=== PATIENT | male | born 1985 | race Caucasian/White ===

== ENCOUNTER 2018-01-13 17:55 | Observation (INO) | payer BC ==
[~2018-01-13] VITALS: Ht 170.2 cm; Wt 75.5 kg
[2018-01-13 19:51] VITALS: BP 144/89; PULSE 80; TEMP 98.2
[2018-01-13 20:58] VITALS: BP 144/89; PULSE 80; TEMP 98.2
[2018-01-13 23:36] VITALS: BP 145/75; PULSE 86; TEMP 98.2
[2018-01-13 23:51] VITALS: BP 124/76; PULSE 76; TEMP 98.4
[2018-01-14 00:05] VITALS: BP 124/75; PULSE 75; TEMP 98.4
[2018-01-14 00:21] VITALS: BP 115/76; PULSE 68; TEMP 98.4
[2018-01-14 00:51] VITALS: BP 110/65; PULSE 65; TEMP 98.1
[2018-01-14 01:21] VITALS: BP 109/76; PULSE 18; TEMP 98.2
[2018-01-14 04:00] VITALS: BP 123/61; PULSE 68; TEMP 98
[2018-01-14 08:12] VITALS: BP 116/66; PULSE 68; TEMP 98.8
== END 2018-01-14 11:27 | disposition home or self-care (01) ==
LOC: SURG 17:55
DX: S31.31XA Laceration without foreign body of scrotum and testes, initial encounter (principal); Z88.5 Allergy status to narcotic agent; Z91.030 Bee allergy status; F17.220 Nicotine dependence, chewing tobacco, uncomplicated
CPT/HCPCS: G0378; G0379; J0690; J1100; J2405; J2704; J3010; J7030